=== PATIENT | female | born 1980 | race Caucasian/White ===

== ENCOUNTER 2018-11-06 14:06 | Emergency (ER) | payer BC, OTHER ==
--- NOTE | 2018-11-06 14:50 | EDM.PDOC ---
ED HPI GENERAL MEDICAL PROBLEM - General Chief Complaint: Neuro Symptoms/Deficits Stated Complaint: stroke Time Seen by Provider: 11/06/18 14:43 Source of Information: Reports: Patient, Family History Limitations: Reports: No Limitations - History of Present Illness INITIAL COMMENTS - FREE TEXT/NARRATIVE: Patient noticed slurred speech when she awoke morning of 11/03/18 (last known well 2100 @ 11/02/18), symptoms resolved by the next morning, then recurred afternoon, speech has been slurred since then. Noticed RUE weakness yesterday morning (difficulty writing, right hand dominant), this has persisted. Brother noticed the patient to have right facial droop this morning @ 11:30, patient had not noticed this. Brother has not seen the patient for two months prior to today. Patient was seen at [facility] in [place] this afternoon and sent her to the ED for possible stroke. Onset Date: 11/03/18 Location: Reports: Face, Upper Extremity, Right Severity: Moderate - Related Data Allergies Allergy/AdvReac Type Severity Reaction Status Date / Time No Known Allergies Allergy Verified 11/06/18 14:59 Home Meds: Home Meds Aspirin 81 mg PO DAILY 11/06/18 [History] Glimepiride 100 mg PO DAILY 11/06/18 [History] Insulin Glargine,Hum.Rec.Anlog [Basaglar Kwikpen U-100] 35 units SQ BID [History] Losartan [Cozaar] 100 mg PO DAILY 11/06/18 [History] metFORMIN [Glucophage XR] 500 mg PO DAILY 11/06/18 [History] Past Medical History Cardiovascular History: Reports: Hypertension. Denies: CAD Neurological History: Denies: CVA, TIA Endocrine/Metabolic History: Reports: Diabetes, Type II - Past Surgical History Musculoskeletal Surgical History: Reports: ORIF (right foot) Social & Family History - Tobacco Use Smoking Status *Q: Never Smoker - Alcohol Use Alcohol Use History: No ED ROS GENERAL - Review of Systems Review Of Systems: ROS reveals no pertinent complaints other than HPI. Musculoskeletal: Reports: Other (right foot ulcer x 6 months) ED EXAM, NEURO - Physical Exam Exam: See Below Exam Limited By: No Limitations General Appearance: Alert, WD/WN, No Apparent Distress Ears: Normal External Exam Nose: Normal Inspection Throat/Mouth: Normal Inspection, No Airway Compromise Head Exam: Atraumatic, Normocephalic Neck: Normal Inspection Respiratory/Chest: No Respiratory Distress, Lungs Clear, Normal Breath Sounds Cardiovascular: Regular Rate, Rhythm, No Murmur Neurological: Alert, Normal Mood/Affect, Other (right facial droop (forehead spared), speech slightly slurred, right hand grasp slightly weak, no UE or LE drift noted, normal sensation to light touch, NIHSS score = 3 (2 for facial weakness, 1 for slurred speech), GCS = 15) Extremities: No Pedal Edema, Other (right plantar ulcer, does not appear infected) Psychiatric: Normal Affect, Normal Mood Skin Exam: Warm, No Rash EKG INTERPRETATION EKG Date: 11/06/18 Time: 15:02 Rhythm: NSR Rate (Beats/Min): 93 [place]: Normal P-Wave: Present QRS: Normal ST-T: Normal QT: Normal Course - Vital Signs Last Recorded V/S: BP 177/77, HR 108, RR 20, Sa02 100% RA - Orders/Labs/Meds Orders: Active Orders 24 hr Category Date Time Status EKG Documentation Completion [RC] ASDIRECTED Care 11/06/18 14:39 Active EKG 12 Lead [EK] Stat Ther 11/06/18 14:38 Ordered Labs: Laboratory Tests 11/06/18 11/06/18 11/06/18 Range/Units 14:55 14:55 15:00 WBC 12.0 (4.5-12.0) X10-3/uL RBC 4.79 (3.23-5.20) x10(6)uL Hgb 13.4 (11.5-15.5) g/dL Hct 40.5 (30.0-51.3) % MCV 84.6 (80-96) fL MCH 28.1 (27.7-33.6) pg MCHC 33.2 (32.2-35.4) g/dL RDW 13.0 (11.5-15.5) % Plt Count 328 (125-369) X10(3)uL MPV 9.3 (7.4-10.4) fL Neut % (Auto) 72.3 (46-82) % Lymph % (Auto) 17.6 (13-37) % [place] % (Auto) 5.0 (4-12) % Eos % (Auto) 4 (1.0-5.0) % Baso % (Auto) 1 (0-2) % Neut # (Auto) 8.7 H (1.6-8.3) # Lymph # (Auto) 2.1 (0.6-5.0) # Paul[place] # (Auto) 0.6 (0.0-1.3) # Eos # (Auto) 0.5 (0.0-0.8) # Baso # (Auto) 0.1 (0.0-0.2) # PT (8.7-11.1) INR (0.89-1.13) APTT (24.4-33.2) SECONDS Sodium (135-145) mmol/L Potassium (3.5-5.3) mmol/L Chloride (100-110) mmol/L Carbon Dioxide (21-32) mmol/L BUN (7-18) mg/dL Creatinine (0.55-1.02) mg/dL Est Cr Clr Drug Dosing Estimated GFR (MDRD) (>60) BUN/Creatinine Ratio (9-20) Glucose (80-116) mg/dL Calcium (8.6-10.2) mg/dL Total Bilirubin (0.1-1.3) mg/dL AST (5-25) IU/L ALT (12-36) U/L Alkaline Phosphatase (56-112) IU/L Troponin I (<0.017-0.056) ng/mL Total Protein (6.0-8.0) g/dL Albumin (3.5-5.2) g/dL Globulin g/dL Albumin/Globulin Ratio Urine HCG, Qual Negative (NEGATIVE) Urine Opiates Screen Negative (NEGATIVE) Ur Oxycodone Screen Negative (NEGATIVE) Ur Propoxyphene Screen Negative (NEGATIVE) Ur Barbituates Screen Negative (NEGATIVE) Ur Tricyclics Screen Negative (NEGATIVE) Ur Phencyclidine Scrn Negative (NEGATIVE) Ur Amphetamine Screen Negative (NEGATIVE) Urine MDMA Screen Negative (NEGATIVE) U Benzodiazepines Scrn Negative (NEGATIVE) U Cocaine Metab Screen Negative (NEGATIVE) U Marijuana (THC) Screen Negative (NEGATIVE) 11/06/18 11/06/18 11/06/18 Range/Units 15:00 15:00 15:00 WBC (4.5-12.0) X10-3/uL RBC (3.23-5.20) x10(6)uL Hgb (11.5-15.5) g/dL Hct (30.0-51.3) % MCV (80-96) fL MCH (27.7-33.6) pg MCHC (32.2-35.4) g/dL RDW (11.5-15.5) % Plt Count (125-369) X10(3)uL MPV (7.4-10.4) fL Neut % (Auto) (46-82) % Lymph % (Auto) (13-37) % [place] % (Auto) (4-12) % Eos % (Auto) (1.0-5.0) % Baso % (Auto) (0-2) % Neut # (Auto) (1.6-8.3) # Lymph # (Auto) (0.6-5.0) # [place] # (Auto) (0.0-1.3) # Eos # (Auto) (0.0-0.8) # Baso # (Auto) (0.0-0.2) # PT 9.1 (8.7-11.1) INR 0.94 (0.89-1.13) APTT 22.2 L (24.4-33.2) SECONDS Sodium 140 (135-145) mmol/L Potassium 4.1 (3.5-5.3) mmol/L Chloride 104 (100-110) mmol/L Carbon Dioxide 26 (21-32) mmol/L BUN 17 (7-18) mg/dL Creatinine 0.9 (0.55-1.02) mg/dL Est Cr Clr Drug Dosing TNP Estimated GFR (MDRD) > 60 (>60) BUN/Creatinine Ratio 18.9 (9-20) Glucose 371 H (80-116) mg/dL Calcium 8.9 (8.6-10.2) mg/dL Total Bilirubin 0.4 (0.1-1.3) mg/dL AST 30 H (5-25) IU/L ALT 47 H (12-36) U/L Alkaline Phosphatase 75 (56-112) IU/L Troponin I 0.024 (<0.017-0.056) ng/mL Total Protein 6.9 (6.0-8.0) g/dL Albumin 2.7 L (3.5-5.2) g/dL Globulin 4.2 g/dL Albumin/Globulin Ratio 0.6 Urine HCG, Qual (NEGATIVE) Urine Opiates Screen (NEGATIVE) Ur Oxycodone Screen (NEGATIVE) Ur Propoxyphene Screen (NEGATIVE) Ur Barbituates Screen (NEGATIVE) Ur Tricyclics Screen (NEGATIVE) Ur Phencyclidine Scrn (NEGATIVE) Ur Amphetamine Screen (NEGATIVE) Urine MDMA Screen (NEGATIVE) U Benzodiazepines Scrn (NEGATIVE) U Cocaine Metab Screen (NEGATIVE) U Marijuana (THC) Screen (NEGATIVE) Meds: Medications Discontinued Medications Generic Name Dose Route Start Last Admin Trade Name Freq PRN Reason Stop Dose Admin Aspirin 324 mg 11/06/18 14:59 11/06/18 15:05 Aspirin PO 11/06/18 15:00 243 mg ONETIME ONE Administration Insulin Human Regular 8 unit 11/06/18 15:27 Humulin R SUBCUT 11/06/18 15:28 .ONCE ONE - Radiology Interpretation Free Text/Narrative:: CT Head: areas of lacunar infarcts in the left thalamus - posterior limb left internal capsule area, possible extending into the basal ganglia minimally. These areas may be evolving - may be acute. - Re-Assessments/Exams Free Text/Narrative Re-Assessment/Exam: 11/06/18 15:[address] Carcamo ([facility]), recommends admission to Hospitalist service. Dr. Marie accepts admission to [facility]. Departure - Departure Time of Disposition: 15:46 Disposition: DC/Tfer to Acute Hospital 02 Condition: Fair Clinical Impression: Ischemic cerebrovascular accident (CVA) Hyperglycemia due to type 2 diabetes mellitus Qualifiers: Diabetes mellitus jail insulin use: with jail use Qualified Code(s): E11.65 - Type 2 diabetes mellitus with hyperglycemia; Z79.4 - [facility] (current ) use of insulin - Discharge Information *PRESCRIPTION DRUG MONITORING PROGRAM REVIEWED*: No *COPY OF PRESCRIPTION DRUG MONITORING REPORT IN PATIENT DONNA: Not Applicable Referrals: Isaac Henning MD [Primary Care Provider] - Forms: ED Department Discharge - My Orders Last 24 Hours: My Active Orders 11/06/18 14:38 EKG 12 Lead [EK] Stat 11/06/18 14:39 EKG Documentation Completion [RC] ASDIRECTED - Assessment/Plan Last 24 Hours: My Active Orders 11/06/18 14:38 EKG 12 Lead [EK] Stat 11/06/18 14:39 EKG Documentation Completion [RC] ASDIRECTED
[2018-11-06] MEDS ORDERED: Aspirin 81 MG Tab.Chew PO ONE (14:59)
--- NOTE | 2018-11-06 15:20 | CT ---
INDICATION: Right-sided weakness, right facial droop. CT HEAD WITHOUT CONTRAST: Spiral examination of the brain was obtained axially with 3.7 mm images and sagittal and coronal reconstructions, 11/06/18 - no comparisons. Total exam DLP = 1,219.22 mGy-cm. There is no shift of midline structures. Ventricles appear to be unremarkable. There are calcifications noted in the vertebral and internal carotid arteries, compatible with cerebrovascular disease. At the level of the left thalamus and apparently posterior limb of the left internal capsule and possibly basal ganglia, there are areas of decreased density, the largest in the area of the posterolateral aspect of the left thalamus. These areas are compatible with lacunar infarcts, possibly evolving. They may be subacute or acute. No other definite abnormal areas of density were identified. No bleeding site or hematoma was seen. Payan/white matter interface appeared normal. Orbits were unremarkable. IMPRESSION: Cerebrovascular disease with areas of lacunar infarcts in the left thalamus - posterior limb left internal capsule area, possibly extending into the basal ganglia minimally. These areas of lacunar infarct may be evolving - may be acute. Report was given by phone to Dr. Alvarenga at 1500 hours on 11/06/18. [facility]
[2018-11-06] MEDS ORDERED: Insulin Regular, Human 100 Units/ML 3 ML Vial SUBCUT ONE (15:27)
== END 2018-11-06 16:40 ==
LOC: FB.ED 14:06
DX: I63.9 Cerebral infarction, unspecified (principal); E11.65 Type 2 diabetes mellitus with hyperglycemia; I10 Essential (primary) hypertension; Z79.4 Long term (current) use of insulin; Z79.899 Other long term (current) drug therapy; Z79.82 Long term (current) use of aspirin
CPT/HCPCS: 36415; 70450; 80053; 80305-QW; 81025; 84484; 85025; 85610; 85730; 93005; 96372; 99285-25; A9270-GY; J1815-GY